=== PATIENT | female | born 1975 | race Caucasian/White ===

== ENCOUNTER 2016-10-16 20:22 | Emergency (ER) | payer BC ==
[~2016-10-16] VITALS: Ht 167.6 cm; Wt 88.0 kg
[~2016-10-16 20:22] MED LIST: CYANOCOBALAM1000 MCG PO; IBUPROFEN600 MG PO; PERCOCET 5/31 TABLET PO; PYRIDIUM100 MG PO; XANAX0.25 MG PO
[2016-10-16 21:28] LABS: HEMATOCRIT 43.3 % (36.0-46.0); MCH 29.4 PG (29.0-34.0); MCHC 33.5 G/DL (30.0-36.0); MCV 87.8 FL (83-99); MEAN PLAT.VOLUME 10.2 uM^3 (9.5-12.4); PLATELET COUNT 370 K/uL (156-360); RBC DIS.WIDTH-CV 12.5 % (11.8-14.6); RED BLOOD COUNT 4.93 M/uL (3.80-5.20); WHITE BLOOD COUNT 11.4 K/uL (4.1-10.2)
[2016-10-16 21:38] LABS: CHLORIDE 102 mEq/L (99-109); SODIUM 132 mEq/L (136-147)
[2016-10-16 21:39] LABS: GLUCOSE 96 mg/dL (70-99)
[2016-10-16 21:40] LABS: ADD MIUA? YES; BILIRUBIN NEGATIVE; BLOOD LARGE; COLOR YELLOW ((YELLOW)); GLUCOSE (STRIP) NEGATIVE; KETONES NEGATIVE; LEUKOCYTES NEGATIVE; NITRITE NEGATIVE; PROTEIN (STRIP) 30; UROBILINOGEN 0.2 MG/DL (0.2-1.0)
[2016-10-16 21:41] LABS: ANION GAP 7 MEQ/L (2-14)
[2016-10-16 21:43] LABS: GFR ESTIMATE (CALCULATED) 58 mL/min/
[2016-10-16 21:44] LABS: UREA NITROGEN (BUN) 12 mg/dL (9-23)
[2016-10-16 22:46] LABS: TOTAL BILIRUBIN 0.4 mg/dL (0.0-1.0)
[2016-10-16 22:47] LABS: ALKALINE PHOSPHATASE 66 IU/L (3-129)
[2016-10-16 22:50] LABS: DIRECT BILIRUBIN 0.2 mg/dL (0.0-0.3)
[2016-10-16 22:51] LABS: LIPASE 43 U/L (1.0-51.0)
[2016-10-16 23:14] LABS: BACTERIA 2+ /HPF; CASTS NONE SEEN /LPF; CRYSTALS PRESENT; EPITHELIAL CELLS RARE /HPF; MUCUS NONE SEEN /LPF; UCUL ADDED? NO; WHITE BLOOD CELLS NONE SEEN /HPF (0-5)
[2016-10-16 23:16] LABS: AMORPHOUS URATES CRYSTALS 3+
[2016-10-17] MEDS ORDERED: MOTRIN800 MG PO (00:43)
[2016-10-17] MEDS ORDERED: FLOMAX0.4 MG PO (00:43)
[2016-10-17] MEDS ORDERED: KEFLEX500 MG PO (00:44)
[2016-10-17] MEDS ORDERED: NORCO 7.5/321 TABLET PO (00:44)
[2016-10-17 01:19] VITALS: BP 126/78
== END 2016-10-17 01:19 | disposition home or self-care (01) ==
LOC: EME 20:22
DX: N13.2 Hydronephrosis with renal and ureteral calculous obstruction (principal); R82.71 Bacteriuria; R11.2 Nausea with vomiting, unspecified; Z90.49 Acquired absence of other specified parts of digestive tract; Z87.442 Personal history of urinary calculi; F17.200 Nicotine dependence, unspecified, uncomplicated
CPT/HCPCS: 74176; 80048; 80076; 81003; 83690; 85027; 87086; 99281; 99284; J0696; J3010

== ENCOUNTER 2016-10-17 17:29 | Emergency (ER) | payer BC ==
[~2016-10-17] VITALS: Ht 167.6 cm; Wt 87.2 kg
[~2016-10-17 17:29] MED LIST changes: +FLOMAX0.4 MG PO; +KEFLEX500 MG PO; +MOTRIN800 MG PO; +NORCO 7.5/321 TABLET PO
[2016-10-17 19:16] LABS: HEMATOCRIT 42.7 % (36.0-46.0); MCH 29.5 PG (29.0-34.0); MEAN PLAT.VOLUME 9.9 uM^3 (9.5-12.4); PLATELET COUNT 360 K/uL (156-360); RBC DIS.WIDTH-CV 12.4 % (11.8-14.6); RBC DIS.WIDTH-SD 39.7 % (39-53); RED BLOOD COUNT 4.91 M/uL (3.80-5.20); WHITE BLOOD COUNT 13.6 K/uL (4.1-10.2)
[2016-10-17 19:29] LABS: CHLORIDE 104 mEq/L (99-109); POTASSIUM 4.2 mEq/L (3.7-5.4); SODIUM 135 mEq/L (136-147)
[2016-10-17 19:31] LABS: GLUCOSE 103 mg/dL (70-99)
[2016-10-17 19:32] LABS: ANION GAP 10 MEQ/L (2-14)
[2016-10-17 19:34] LABS: ALKALINE PHOSPHATASE 66 IU/L (3-129)
[2016-10-17 19:35] LABS: GFR ESTIMATE (CALCULATED) 44 mL/min/
[2016-10-17 19:36] LABS: UREA NITROGEN (BUN) 12 mg/dL (9-23)
[2016-10-17 19:37] LABS: TOTAL BILIRUBIN 0.9 mg/dL (0.0-1.0)
[2016-10-17 19:46] LABS: QUANTITATIVE HCG < 4.0 MIU/ML
[2016-10-17 19:56] LABS: ADD MIUA? YES; BILIRUBIN NEGATIVE; BLOOD MODERATE; COLOR YELLOW ((YELLOW)); GLUCOSE (STRIP) NEGATIVE; KETONES 20; LEUKOCYTES NEGATIVE; NITRITE NEGATIVE; PROTEIN (STRIP) NEGATIVE; SPECIFIC GRAVITY 1.012 (1.000-1.030); UROBILINOGEN 0.2 MG/DL (0.2-1.0)
[2016-10-17 20:02] LABS: BACTERIA RARE /HPF; CALCIUM OXALATE CRYSTALS 1+ /HPF; EPITHELIAL CELLS RARE /HPF; MUCUS 2+ /LPF; RED BLOOD CELLS 30-40 /HPF (0-5); UCUL ADDED? NO; WHITE BLOOD CELLS 0-5 /HPF (0-5)
[2016-10-17 20:45] VITALS: BP 122/81
== END 2016-10-17 21:07 | disposition home or self-care (01) ==
LOC: EME 17:29
DX: N20.1 Calculus of ureter (principal); R11.2 Nausea with vomiting, unspecified; Z87.442 Personal history of urinary calculi; F17.200 Nicotine dependence, unspecified, uncomplicated; Z90.49 Acquired absence of other specified parts of digestive tract
CPT/HCPCS: 80053; 81003; 84702; 85027; 99281; 99285; J1885; J2405; J3010; J7030